=== PATIENT | female | born 1965 | race Caucasian/White ===

== ENCOUNTER 2018-06-05 07:29 | Emergency (ER) | payer BC ==
[~2018-06-05] VITALS: Ht 172.7 cm; Wt 76.7 kg
[2018-06-05 07:39] VITALS: BP 167/94
[2018-06-05] MEDS ORDERED: BUSPIRONE HCL10 MG PO (07:46)
[2018-06-05] MEDS ORDERED: HYDROCHLOROTH12.5 M1 PO (07:46)
[2018-06-05] MEDS ORDERED: CRESTOR10 MG PO (07:46)
[2018-06-05] MEDS ORDERED: DOXYCYCLINE 10100 MG PO (07:52)
[2018-06-05] MEDS ORDERED: HYDROCODONE-AP1 EAC6 PO (07:52)
== END 2018-06-05 08:00 | disposition home or self-care (01) ==
LOC: M.ERS 07:29
DX: L03.114 Cellulitis of left upper limb (principal); I10 Essential (primary) hypertension; E78.5 Hyperlipidemia, unspecified; F32.9 Major depressive disorder, single episode, unspecified; F41.9 Anxiety disorder, unspecified; Z90.710 Acquired absence of both cervix and uterus; Z90.49 Acquired absence of other specified parts of digestive tract; W57.XXXA Bitten or stung by nonvenomous insect and other nonvenomous arthropods, initial encounter; Y93.89 Activity, other specified; Y92.89 Other specified places as the place of occurrence of the external cause; Y99.8 Other external cause status

== ENCOUNTER 2020-01-28 05:37 | Emergency (ER) | payer BC ==
[~2020-01-28] VITALS: Ht 172.7 cm; Wt 85.7 kg
[~2020-01-28 05:37] MED LIST: BUSPIRONE HCL10 MG PO; CRESTOR10 MG PO; DOXYCYCLINE 10100 MG PO; HYDROCHLOROTH12.5 M1 PO; HYDROCODONE-AP1 EAC6 PO
[2020-01-28] MEDS ORDERED: ABILIFY 5 MG TAB5 M1 PO (05:50)
[2020-01-28] MEDS ORDERED: BACLOFEN 10MG T10 MG PO (05:50)
[2020-01-28] MEDS ORDERED: LEXAPRO 10 MG T10 M1 PO (05:51)
[2020-01-28] MEDS ORDERED: HYDROCHLOROTHIA25 M2 PO (05:51)
[2020-01-28 06:20] LABS: ABSOLUTE BASOPHILS 0.1 thou/uL (0.0-0.2); ABSOLUTE EOSINOPHILS 0.1 thou/uL (0.0-0.7); ABSOLUTE MONOCYTES 0.6 thou/uL (0.0-1.2); ABSOLUTE NEUTROPHILS 6.3 thou/uL (1.6-8.1); BASOPHILS 0.8 %; EOSINOPHILS 0.9 %; HEMATOCRIT 43.3 % (37.0-47.0); HEMOGLOBIN 15.3 gm/dL (12.0-15.0); LYMPHOCYTES 22.1 %; MCH 30.6 pg (26.0-34.0); MCHC 35.2 g/dL (28.0-37.0); MCV 86.8 fL (80.0-100.0); MONOCYTES 6.1 %; NUCLEATED RBCS 0 /100WBC; PLATELET COUNT* 219 thou/uL (150-400); POLYS 70.1 %; RBC 4.99 mil/uL (4.20-5.00); RDW-CV 13.4 % (10.5-14.5)
[2020-01-28 06:26] LABS: CALCIUM 9.2 mg/dL (8.5-10.1); CREATININE 1.1 mg/dL (0.6-1.3); POTASSIUM 3.4 mmol/L (3.5-5.1)
[2020-01-28 06:31] LABS: ALBUMIN 4.1 g/dL (3.4-5.0); TOTAL BILIRUBIN 1.5 mg/dL (<0.1-1.0); TOTAL PROTEIN 8.1 g/dL (6.4-8.2)
[2020-01-28 08:13] LABS: URINE BILIRUBIN NEGATIVE (Negative); URINE BLOOD 2+ (Negative); URINE CLARITY CLEAR; URINE COLOR YELLOW; URINE GLUCOSE-RANDOM NEGATIVE (Negative); URINE KETONES NEGATIVE (Negative); URINE LEUKOCYTES-REFLEX TRACE (Negative); URINE NITRITE-REFLEX NEGATIVE (Negative); URINE PROTEIN 1+ (Negative); URINE UROBILINOGEN 0.2 E.U./dl (0.2-1.0)
[2020-01-28 08:26] LABS: CASTS None Seen /LPF (None Seen); CRYSTALS None Seen /LPF (None Seen); SQUAMOUS 4-10 Moderate /LPF (0-3); URINE RBC 3-10 Few /HPF (0-2); URINE WBC-REFLEX 6-15 Few /HPF (0-5)
[2020-01-28] MEDS ORDERED: BACTRIM DS TAB1 EAC1 PO ×2 (08:40→08:46)
[2020-01-28] MEDS ORDERED: ZOFRAN ODT4 MG DISSOLVE ×2 (08:40→08:46)
[2020-01-28] MEDS ORDERED: PYRIDIUM100 M1 PO ×2 (08:40→08:46)
[2020-01-28 08:57] VITALS: BP 132/90
== END 2020-01-28 08:58 | disposition home or self-care (01) ==
LOC: M.ERS 05:37
PROVIDERS: Family Medicine
DX: N30.90 Cystitis, unspecified without hematuria (principal); I10 Essential (primary) hypertension; E78.5 Hyperlipidemia, unspecified; Z90.49 Acquired absence of other specified parts of digestive tract; Z88.5 Allergy status to narcotic agent; Z88.0 Allergy status to penicillin; Z90.710 Acquired absence of both cervix and uterus; Z88.8 Allergy status to other drugs, medicaments and biological substances